=== PATIENT | female | born 1980 | race African-American/Black ===

== ENCOUNTER 2019-10-12 16:13 | Emergency (ER) | payer OTHER ==
[~2019-10-12] VITALS: Ht 160 cm; Wt 81.6 kg
== END 2019-10-12 18:19 | disposition home or self-care (01) ==
LOC: ER 16:13
DX: S93.491A Sprain of other ligament of right ankle, initial encounter (principal); W18.39XA Other fall on same level, initial encounter; Y93.89 Activity, other specified; Y92.488 Other paved roadways as the place of occurrence of the external cause; Y99.8 Other external cause status

== ENCOUNTER 2021-02-20 19:29 | Emergency (ER) | payer OTHER ==
[~2021-02-20] VITALS: Ht 157.5 cm; Wt 76.2 kg
== END 2021-02-21 00:01 | disposition home or self-care (01) ==
LOC: ER 19:29
DX: O20.0 Threatened abortion (principal)